=== PATIENT | female | born 1990 | race Caucasian/White ===

== ENCOUNTER 2019-10-09 08:56 | Emergency (ER) | payer SELFPAY ==
[~2019-10-09] VITALS: Ht 157.5 cm; Wt 68.0 kg
[2019-10-09 09:14] VITALS: BP 123/84; Ht 157.5 cm; Wt 68.0 kg
== END 2019-10-09 10:30 | disposition home or self-care (01) ==
LOC: ED 08:56
DX: S63.91XA Sprain of unspecified part of right wrist and hand, initial encounter (principal); W10.9XXA Fall (on) (from) unspecified stairs and steps, initial encounter; Y93.89 Activity, other specified; Y92.89 Other specified places as the place of occurrence of the external cause; Y99.8 Other external cause status